=== PATIENT | female | born 1995 | race African-American/Black ===

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

== ENCOUNTER 2018-04-27 21:49 | Emergency (ER) | payer BC ==
[2018-04-27 22:03] VITALS: BP 129/67; PULSE 86; TEMP 97.9; BMI 31.3
--- NOTE | 2018-04-28 00:41 | PDOC ---
History of Present Illness - General Chief Complaint: Abscess Boil Stated Complaint: PAIN IN LEFT WRIST/MIDDLE FINGER Time Seen by Provider: 04/27/18 22:35 History Source: Patient Exam Limitations: No Limitations Past History - Travel Traveled outside of the country in the last 30 days: No Close contact w/someone who was outside of country & ill: No - Past Medical History Allergies/Adverse Reactions: Allergies Allergy/AdvReac Type Severity Reaction Status Date / Time No Known Allergies Allergy Verified 04/27/18 22:03 Home Medications: Ambulatory Orders Cephalexin Monohydrate [Keflex -] 500 mg PO BID #14 capsule 04/28/18 Ibuprofen 600 mg PO Q6H #30 tablet 04/28/18 COPD: No - Suicide/Smoking/Psychosocial Hx Smoking History: Never smoked Review of Systems - Review of Systems Able to Perform ROS?: Yes Is the patient limited [place] proficient: No *Physical Exam - Vital Signs Last Vital Signs Temp Pulse Resp BP Pulse Ox 97.9 F 86 18 129/67 100 04/27/18 22:01 04/27/18 22:01 04/27/18 22:01 04/27/18 22:01 04/27/18 22:01 Moderate Sedation - Procedure Monitoring Vital Signs: Procedure Monitoring Vital Signs Temperature 97.9 F 04/27/18 22:01 Pulse Rate 86 04/27/18 22:01 Respiratory Rate 18 04/27/18 22:01 Blood Pressure 129/67 04/27/18 22:01 O2 Sat by Pulse Oximetry (%) 100 04/27/18 22:01 *DC/Admit/Observation/Transfer Diagnosis at time of Disposition: Paronychia, Ganglion cyst - Discharge Dispostion Disposition: HOME Condition at time of disposition: Stable Decision to Admit order: No - Prescriptions Prescriptions: Cephalexin Monohydrate [Keflex -] 500 mg PO BID #14 capsule Ibuprofen 600 mg PO Q6H #30 tablet - Referrals Referrals: Krzysztof Diaz MD [Staff Physician] - - Patient Instructions Printed Discharge Instructions: DI for Paronychia, DI Ganglion Cyst Additional Instructions: You had a paronychia of your finger drained. Please use warm water soaks to the area to help continue the finger to heal. Take the Keflex twice a day for one week. You also had a ganglion cyst. Please up with orthopedics. A referral has been provided for you. You may take Motrin 600 mg every 6 hours as needed for pain. Return to the ER for worsening pain to the finger, fevers, redness to the site or if you have any changes in your symptoms. - Post Discharge Activity
== END 2018-04-28 00:45 | disposition home or self-care (01) ==
LOC: JER 21:49 → JERFT 21:49 → JER 04-28 00:45
PROC: 0J9K0ZZ Drainage of Left Hand Subcutaneous Tissue and Fascia, Open Approach (ICD-10-PCS; principal; 2018-04-27)
DX: M67.432 Ganglion, left wrist (principal); L03.012 Cellulitis of left finger
CPT/HCPCS: 99281-25

== ENCOUNTER 2018-05-01 15:09 | Emergency (ER) | payer BC ==
--- NOTE | 2018-05-01 15:19 | PDOC ---
Rapid Medical Evaluation Time Seen by Provider: 05/01/18 15:18 Medical Evaluation: Allergies Allergy/AdvReac Type Severity Reaction Status Date / Time No Known Allergies Allergy Verified 04/27/18 22:03 05/01/18 15:18 I have performed a brief in-person evaluation of this patient. The patient presents with a chief complaint of:L middle finger abscess Pertinent physical exam findings:L middle finger swelling at the proximal nail fold I have ordered the following:nothing The patient will proceed to the ED for further evaluation. Discharge Disposition - Diagnosis Paronychia - Referrals - Patient Instructions - Post Discharge Activity
[2018-05-01 15:22] VITALS: BP 121/64; PULSE 66; TEMP 98.6; BMI 29.0
--- NOTE | 2018-05-01 18:00 | PDOC ---
History of Present Illness - General Chief Complaint: Abscess Boil Stated Complaint: FINGER INJURY Time Seen by Provider: 05/01/18 15:18 Past History - Past Medical History Allergies/Adverse Reactions: Allergies Allergy/AdvReac Type Severity Reaction Status Date / Time No Known Allergies Allergy Verified 05/01/18 15:21 Home Medications: Ambulatory Orders Cephalexin Monohydrate [Keflex -] 500 mg PO BID #14 capsule 04/28/18 Ibuprofen 600 mg PO Q6H #30 tablet 04/28/18 Sulfamethoxazole/Trimethoprim [Bactrim Ds -] 1 tab PO BID #14 tablet 05/01/18 COPD: No - Suicide/Smoking/Psychosocial Hx Smoking History: Current every day smoker Have you smoked in the past 12 months: No Information on smoking cessation initiated: No Hx Alcohol Use: No Drug/Substance Use Hx: Yes *Physical Exam - Vital Signs Last Vital Signs Temp Pulse Resp BP Pulse Ox 98.6 F 66 18 121/64 100 05/01/18 15:19 05/01/18 15:19 05/01/18 15:19 05/01/18 15:19 05/01/18 15:19 Moderate Sedation - Procedure Monitoring Vital Signs: Procedure Monitoring Vital Signs Temperature 98.6 F 05/01/18 15:19 Pulse Rate 66 05/01/18 15:19 Respiratory Rate 18 05/01/18 15:19 Blood Pressure 121/64 05/01/18 15:19 O2 Sat by Pulse Oximetry (%) 100 05/01/18 15:19 Procedures - Incision and Drainage I&D Site: Left: Paronychia (3rd finger) Betadine cleansed: Yes Anesthesia: 1% Lidocaine (digital block) Volume(ml): 3 Blade Size: 10 Attempts: 1 *DC/Admit/Observation/Transfer Diagnosis at time of Disposition: Paronychia - Discharge Dispostion Disposition: HOME Condition at time of disposition: Stable Decision to Admit order: No - Prescriptions Prescriptions: Sulfamethoxazole/Trimethoprim [Bactrim Ds -] 1 tab PO BID #14 tablet - Referrals Referrals: Ward Noonan MD [Primary Care Provider] - - Patient Instructions Printed Discharge Instructions: DI for Paronychia Additional Instructions: You have your paronychia or abscess drained today from your left third finger. Please soak the area to help the infection come out. Continue taking the Keflex as previously prescribed. Please to The Bactrim and start taking it. Take it twice day for one week. Return in 2 days for a wound check. Return to the ER for any new or worsening symptoms including redness to the finger, increased pain, or if you have any changes in your symptoms. - Post Discharge Activity Forms/Work/School Notes: Back to Work
== END 2018-05-01 18:36 | disposition home or self-care (01) ==
LOC: JERFT 15:09
PROC: 0H9QXZZ Drainage of Finger Nail, External Approach (ICD-10-PCS; principal; 2018-05-01)
DX: L03.012 Cellulitis of left finger (principal)
CPT/HCPCS: 87070; 87077; 87186; 87205; 99281-25

== ENCOUNTER 2018-05-03 11:41 | Emergency (ER) | payer BC ==
[2018-05-03 11:54] VITALS: BP 131/61; PULSE 80; TEMP 98.9; BMI 29.0
--- NOTE | 2018-05-03 12:30 | PDOC ---
History of Present Illness - General Chief Complaint: Revisit,Wound Recheck Stated Complaint: SWOLLEN FINGER Time Seen by Provider: 05/03/18 11:58 History Source: Patient Exam Limitations: No Limitations - History of Present Illness Initial Comments: 05/03/18 12:21 22 year old female with no significant medical or surgical history present for wound check of paronychia of left 3rd digit. Patient states + swelling, taking medication as prescribed and soaking in warm water as directed. Occurred: reports: other (2 days ago ) Severity: reports: mild Upper Extremity Pain Location: left: 3rd finger Method of Injury: reports: unknown Modifying Factors: improves with: immobilization, pain medication Extremity Pain Location - Extremity Pain Location Extremity Pain Locations: left: 3rd finger Past History - Past Medical History Allergies/Adverse Reactions: Allergies Allergy/AdvReac Type Severity Reaction Status Date / Time No Known Allergies Allergy Verified 05/03/18 11:51 Home Medications: Ambulatory Orders Cephalexin Monohydrate [Keflex -] 500 mg PO BID #14 capsule 04/28/18 Ibuprofen 600 mg PO Q6H #30 tablet 04/28/18 Sulfamethoxazole/Trimethoprim [Bactrim Ds -] 1 tab PO BID #14 tablet 05/01/18 COPD: No - Suicide/Smoking/Psychosocial Hx Smoking History: Never smoked Have you smoked in the past 12 months: No Hx Alcohol Use: No Drug/Substance Use Hx: Yes Review of Systems - Review of Systems Able to Perform ROS?: Yes Is the patient limited Thai proficient: No Constitutional: No: Chills, Fever HEENTM: No: Cataracts, Nose Congestion, Mouth Swelling Respiratory: No: Wheezing ABD/GI: No: Abd. Pain w/ defecation, Blood Streaked Bowels : No: Hematuria, Testicular Pain Integumentary: Yes: Other (left finger pain) Neurological: No: Seizure, Dizziness Endocrine: No: Excessive Sweating, Increased Hunger, Increased Urine, Unexplained Weight Gain Hematologic/Lymphatic: No: Anemia *Physical Exam - Vital Signs Last Vital Signs Temp Pulse Resp BP Pulse Ox 98.9 F 80 18 131/61 99 05/03/18 11:52 05/03/18 11:52 05/03/18 11:52 05/03/18 11:52 05/03/18 11:52 - Physical Exam General Appearance: Yes: Nourished, Appropriately Dressed HEENT: positive: ERIN, Pharynx Normal Neck: negative: Tender midline Respiratory/Chest: negative: Paradoxal Breathing, Crackles, Wheezing Cardiovascular: positive: Regular Rhythm, Regular Rate Extremity: positive: Other (+swelling around left 3rd digit, no redness, + tender to touch, draining yellowish liquid) Moderate Sedation - Procedure Monitoring Vital Signs: Procedure Monitoring Vital Signs Temperature 98.9 F 05/03/18 11:52 Pulse Rate 80 05/03/18 11:52 Respiratory Rate 18 05/03/18 11:52 Blood Pressure 131/61 05/03/18 11:52 O2 Sat by Pulse Oximetry (%) 99 05/03/18 11:52 Medical Decision Making - Medical Decision Making 05/03/18 12:31 22 year old female with no significant medical or surgical history present for wound check of paronychia of left 3rd digit. Plan: soaked in betadine and water solution for 20 minutes, small amount of fluid expressed from finger pt tolerated well instructed to continue soaks at home and take medication until completed *DC/Admit/Observation/Transfer Diagnosis at time of Disposition: Paronychia - Discharge Dispostion Disposition: HOME Condition at time of disposition: Good Decision to Admit order: No - Referrals Referrals: Ward Noonan MD [Primary Care Provider] - - Patient Instructions Additional Instructions: Continue taking medication as prescribed. Soak finger in warm water for 20 minutes 3 times daily Return for worsening, swelling and redness of finger - Post Discharge Activity Forms/Work/School Notes: Back to Work
== END 2018-05-03 12:27 | disposition home or self-care (01) ==
LOC: JERFT 11:41
DX: L03.012 Cellulitis of left finger (principal)
CPT/HCPCS: 99281-25